=== PATIENT | female | born 1950 | race Caucasian/White ===

== ENCOUNTER → 2022-03-19 08:58 | Outpatient (BNVA) | payer BC, SELFPAY | PROVIDERS: PCP Internal Medicine; Visit Provider Nurse Practitioner Family | DX: Z13.89 Encounter for screening for other disorder (principal) ==

== ENCOUNTER → 2022-11-12 15:37 | Outpatient (BNVA) | payer BC, SELFPAY | PROVIDERS: PCP Internal Medicine; Visit Provider Nurse Practitioner Family | DX: Z13.89 Encounter for screening for other disorder (principal) ==

== ENCOUNTER 2023-08-15 08:14 | Outpatient (AMB) | payer BC, SELFPAY ==
[2023-08-15 08:15] VITALS: BP 124/78; PULSE 64; O2SAT 100; BMI 23.0
--- NOTE | 2023-08-15 08:15 | MHC.OFFVIS ---
Intake Vital Signs 08/15/23 08:15 Height 4 ft 10 in Weight 110 lb BMI 23.0 BP 124/78 Blood Pressure Location Rt brachial Position Sitting Pulse 64 Pulse Source Pulse Oximeter Pulse Oximetry (%) 100 Oxygen Delivery Method Room Air Intake Visit Reasons: 6mo Follow up appT- LVM Intake Note: Patient presents for 6 month follow up. Patient states very high anxiety Allergies No Known Allergies Allergy (Verified 08/15/23 08:18) HPI HPI Comments History of Present Illness Details 72-yr-old female presents for f/u visit. Pt denies any significant interval medical changes. Pt reports she is having increased anxiety r/t recently leaving her job of 26 yrs. 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 Prior to leaving her position, she had increased anxiety and stress, which caused her to lose her appetite and lose some weight. Her sleep is variable- some days better than others. Using CBD for sleep 2-3 x's per week. Her tremor is much worse , which she attributes to the stress/anxiety. Denies stiffness, gait changes, falls. [facility] Medical History (Updated 11/12/22 @ 16:54 by FUENTES Boucher) Anxiety Vertigo Osteoporosis Back pain GERD (gastroesophageal reflux disease) Depression Arthritis Surgical History Hx of cataract surgery Social History Alcohol intake: never Patient Tobacco Use Status: Never used Tobacco Review of Systems Const All systems reviewed & are unremarkable except as noted in HPI and below Physical Exam Vital Signs: Last Vital Signs Pulse 64 08/15/23 08:15 BP 124/78 08/15/23 08:15 Pulse Ox 100 08/15/23 08:15 Oxygen Delivery Method Room Air 08/15/23 08:15 BMI result Body Mass Index 23.0 Const General: cooperative and no acute distress Orientation/consciousness: patient oriented x3 HEENT Head: Yes normocephalic Resp Effort & Inspection: normal respiratory effort and able to speak in complete sentences Neuro Other: BUE postural tremor. General: patient oriented x3, gait normal and CN's II-XI intact bilaterally Cognition (Neuro): normal cognition Motor exam (neuro): 5/5 motor strength present throughout Psych Appearance: grossly normal Mental Status: mental status grossly normal Affect: normal affect Attitude: cooperative Thought process: Normal thought process present Assessment & Plan Assessment & Plan (1) Essential tremor: Comment: ARACELY scan normal. Code(s): G25.0 - Essential tremor (2) Insomnia: Code(s): G47.00 - Insomnia, unspecified Plan May use Lorazepam prn. May continue Gabapentin 600-700mg qhs. Discussed alt tx's for tremor such as PD/dopaminergic tx's including CD-LD and Ropinirole- pt would like to wait at this time. Pt to continue working on sleep hygiene. May take CBD gummies prn insomnia. f/u in 5 months or sooner prn. Coding Level of Care Code Est Pt Level 4 (11074) Diagnoses Essential tremor G25.0 Insomnia G47.00
== END 2023-08-15 09:08 | disposition home or self-care (01) ==
PROVIDERS: Visit Provider Nurse Practitioner Family
DX: G25.0 Essential tremor (principal); G47.00 Insomnia, unspecified
CPT/HCPCS: 99214

== ENCOUNTER → 2023-08-15 08:14 | Outpatient (BNVA) | payer BC, SELFPAY | PROVIDERS: Visit Provider Nurse Practitioner Family ==

== ENCOUNTER 2024-01-11 09:36 | Outpatient (AMB) | payer MEDICARE, BC, SELFPAY ==
--- NOTE | 2024-01-11 09:43 | A.OFFVIS_ITS ---
Intake Vital Signs 01/11/24 09:44 Height 4 ft 10 in Weight 112 lb BMI 23.4 BP 122/68 Blood Pressure Location Rt brachial Position Sitting Pulse 73 Pulse Source Pulse Oximeter Pulse Oximetry (%) 98 Oxygen Delivery Method Room Air Intake Visit Reasons: 5 mnts f/u appt-Conf Intake Note: Patient presents for 5 month follow up. tremors are getting worst Allergies No Known Allergies Allergy (Verified 01/11/24 09:52) Medication List - Last Reconciled 01/11/24 by FUENTES Boucher acetaminophen-codeine 300-30 mg tabs PO ascorbate calcium (vitamin C) 500 mg PO DAILY bupropion HCl 300 mg PO DAILY buspirone 30 mg PO BID estradiol 10 mcg vaginal 2XW gabapentin 600 mg PO DAILY lidocaine 5% 1 patch topical DAILY vitamin B complex 1 tab PO DAILY HPI HPI Comments History of Present Illness Details 73-yr-old female presents for f/u visit. Pt reports the following interval medical history changes: She injured her back in October while shoveling. She was significantly limited in her mobility. She is using a cane. She has done some PT and seeing [facility] pain management office- just recently had an epidural injection- has not had much benefit from this yet, however she is optimistic that it will have some effect. She has been feeling frustrated with all of this. 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 She is hoping to return to work once feeling better. She has noticed increased tremor w/ action and rest. Exacerbated by anxiety. The tremor is making it more difficult to write, use her cell phone, or her computer. Trying to do some deep breathing. [facility] Medical History (Updated 01/11/24 @ 19:21 by FUENTES Boucher) Anxiety Vertigo Osteoporosis Back pain GERD (gastroesophageal reflux disease) Depression Arthritis Surgical History Hx of cataract surgery Social History Alcohol intake: never Patient Tobacco Use Status: Never used Tobacco Review of Systems Const All systems reviewed & are unremarkable except as noted in HPI and below Physical Exam Vital Signs: Last Vital Signs Pulse 73 01/11/24 09:44 BP 122/68 01/11/24 09:44 Pulse Ox 98 01/11/24 09:44 Oxygen Delivery Method Room Air 01/11/24 09:44 BMI result Body Mass Index 23.4 Const General: cooperative and no acute distress Resp Effort & Inspection: normal respiratory effort and able to speak in complete sentences Neuro Other: Expression: Intact Voice: Intact Tremor: RUE and RLE rets tremor, BUE postural tremor, slightly more on right Tone: BUE R > L tone Dyskinesia: None FFM: Decreased Foot taps: Decreased- more so on left, patient states due to low back and left leg pain. Gait: Slow to stand, steady gait with cane. Psych: Pleasant affect, some anxiety Assessment & Plan Assessment & Plan (1) Essential tremor: Comment: ARACELY scan normal. 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 Code(s): G25.0 - Essential tremor (2) Insomnia: Code(s): G47.00 - Insomnia, unspecified Plan Trial carbidopa levodopa 25-100 mg, 1/2-1 tab b.i.d., take it at least 30 minutes before a meal or protein. In hopes this reduces tremor and rigidity. Reviewed common side effects: Orthostatic hypotension, nausea, dyskinesia, hallucinations. Information shared on essential tremor resources, such as computer aids, writing aids. Encouraged to increase fluids. May use Lorazepam prn. May continue Gabapentin 600-700mg qhs. Pt to continue working on sleep hygiene. May take CBD gummies prn insomnia. f/u in 6 months or sooner prn. Medications: New carbidopa-levodopa 25-100 mg take w/ a cracker 30 minutes before breakfast and dinner, 0.5 - 1 tabs PO BID 60 tabs 3RF 30 days Coding Level of Care Code Est Pt Level 4 (76249) Diagnoses Essential tremor G25.0 Insomnia G47.00
[2024-01-11 09:44] VITALS: BP 122/68; PULSE 73; O2SAT 98; BMI 23.4
== END 2024-01-11 10:45 | disposition home or self-care (01) ==
PROVIDERS: PCP Internal Medicine; Visit Provider Nurse Practitioner Family
DX: G25.0 Essential tremor (principal); G47.00 Insomnia, unspecified
CPT/HCPCS: 99214

== ENCOUNTER → 2024-01-11 09:36 | Outpatient (BNVA) | payer BC, SELFPAY | PROVIDERS: PCP Internal Medicine; Visit Provider Nurse Practitioner Family ==

== ENCOUNTER 2024-06-12 11:09 | Outpatient (AMB) | payer MEDICARE, BC, SELFPAY ==
--- NOTE | 2024-06-12 11:18 | MHC.OFFVIS ---
Vital Signs 06/12/24 11:19 Height 4 ft 10 in Weight 110 lb BMI 23.0 BP 110/72 Blood Pressure Location Rt brachial Position Sitting Pulse 71 Pulse Source Pulse Oximeter Pulse Oximetry (%) 98 Oxygen Delivery Method Room Air Intake Visit Reasons: Follow up-CONF Intake Note: Patient presents for follow up.Patient states tremors are getting worst back is hurting a lot and my memory is a concern. Allergies No Known Allergies Allergy (Verified 06/12/24 11:23) Medication List - Last Reconciled 06/12/24 by FUENTES Boucher acetaminophen-codeine 300-30 mg tabs PO ascorbate calcium (vitamin C) 500 mg PO DAILY bupropion HCl XL 300 mg PO DAILY buspirone 30 mg PO BID carbidopa-levodopa 25-100 mg 0.5 - 1 tabs PO BID 30 days estradiol 10 mcg vaginal 2XW gabapentin 600 mg PO DAILY lidocaine 5% 1 patch topical DAILY vitamin B complex 1 tab PO DAILY HPI Comments Details: Right-handed 73-yr-old female presents for f/u visit. Pt is accompanied by her , Sybil. Pt denies any significant interval medical history changes. Pt continues to work w/ [facility] pain management- she is being considered for device trial. Her step dtr committed suicide this Spring, and she is recovering from this. She has been taking CD-LD 1 tab qam. Forgetting to take the 2nd CD-LD dose regularly. She is not noticing much decrease in her tremors- if anything the tremors are increased. Tremor is mostly w/ action- writing, eating, using a computer- mostly with the typing but less so with the mouse, texting on her phone. Occasionally will see a RUE rest tremor. At times intentionally focusing and telling her hand not to tremor helps briefly. The tremors are most bothersome when anxious or upset. She is curious about Medicare coverage of Brian-Trio. She is noticing more cognitive issues. Relying on her her calender in her phone more often. May wake up and need to confirm what day it is. feels her memory is worse in the am, but feels once she is settled, her cognition is ok. She is noticing that she is more prone to misplacing her keys or forgetting to bring everything with her- say her cane. Having some more nights were she is not falling asleep as easily. Some nights she sleeps 12 hrs, which she feels she needs as she did sleep. She denies daytime tiredness. Notes her mood is better since we last saw her in December, as at that point she was dealing w/ some financial issues. 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 [facility] Medical History Anxiety Vertigo Osteoporosis Back pain GERD (gastroesophageal reflux disease) Depression Arthritis Surgical History Hx of cataract surgery Social History Alcohol intake: never Patient Tobacco Use Status: Never used Tobacco Review of Systems Const All systems reviewed & are unremarkable except as noted in HPI and below Physical Exam Vital Signs: Last Vital Signs Pulse 71 06/12/24 11:19 BP 110/72 06/12/24 11:19 Pulse Ox 98 06/12/24 11:19 Oxygen Delivery Method Room Air 06/12/24 11:19 BMI result Body Mass Index 23.0 Const General: cooperative and no acute distress Resp Effort & Inspection: normal respiratory effort and able to speak in complete sentences Neuro Other: General: A&O x's 3 Expression: Intact Voice: Intact Tremor: RUE and RLE rest tremor, BUE postural and kinetic tremor, slightly more on right Tone: BUE R > L tone Dyskinesia: None FFM: Decreased Foot taps: Decreased- more so on left, Gait: Slow to stand, steady gait with cane. Psych: Pleasant affect Assessment & Plan Assessment & Plan (1) Essential tremor: Comment: ARACELY scan normal. 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 Code(s): G25.0 - Essential tremor Category: Medical (2) Cognitive changes: Code(s): R41.89 - Other symptoms and signs involving cognitive functions and awareness Category: Medical Plan Regarding Brian-Trio, we will request updated Medicare clinical criteria for this device. Pt advised to discuss using brian-trio w/ potential pain device, as these may be contraindicated. Trial slowly increasing carbidopa-levodopa 25-100 mg, from 1 tab 1 tab qd-bid to 1 tab tid. Ideally, take it at least 30 minutes before a meal or protein. In hopes this reduces tremor and rigidity. Reviewed common side effects: Orthostatic hypotension, nausea, dyskinesia, hallucinations. Information shared on essential tremor resources, such as computer aids, writing aids. Increased fluids. May use Lorazepam prn. May continue Gabapentin 600-700mg qhs. Pt to continue working on sleep hygiene. May take CBD gummies prn insomnia- sparingly. Will request baseline neuro-psych evaluation. Previous ET trials- Propranolol 40mg bid- not tolerated. Primidone 25mg- not tolerated. f/u in 6 months or sooner prn. Orders: Referrals Neuropsychiatry Referral R41.89 - Other symptoms and signs involving cognitive functions and awareness Medications: Changed From carbidopa-levodopa 25-100 mg take w/ a cracker 30 minutes before breakfast and dinner, 0.5 - 1 tabs PO BID 30 days 60 tabs 6RF To carbidopa-levodopa 25-100 mg take w/ a cracker 30 minutes before breakfast and dinner, 0.5 - 1 tabs PO TID 90 tabs 6RF 30 days Coding Level of Care Code Est Pt Level 4 (04913) Diagnoses Essential tremor G25.0 Cognitive changes R41.89
[2024-06-12 11:19] VITALS: BP 110/72; PULSE 71; O2SAT 98; BMI 23.0
== END 2024-06-12 12:27 | disposition home or self-care (01) ==
PROVIDERS: PCP Internal Medicine; Visit Provider Nurse Practitioner Family
DX: G25.0 Essential tremor (principal); R41.89 Other symptoms and signs involving cognitive functions and awareness
CPT/HCPCS: 99214

== ENCOUNTER → 2024-06-12 11:09 | Outpatient (BNVA) | payer BC, MEDICARE, SELFPAY | PROVIDERS: PCP Internal Medicine; Visit Provider Nurse Practitioner Family ==

== ENCOUNTER 2024-12-20 08:44 | Outpatient (AMB) | payer BC, MEDICARE, SELFPAY ==
[2024-12-20 08:47] VITALS: BP 110/72; PULSE 76; O2SAT 99; BMI 23.2
--- NOTE | 2024-12-20 08:47 | A.OFFVIS_ITS ---
Vital Signs 12/20/24 08:47 Height 4 ft 10 in Weight 111 lb BMI 23.2 BP 110/72 Blood Pressure Location Rt brachial Position Sitting Pulse 76 Pulse Source Pulse Oximeter Pulse Oximetry (%) 99 Oxygen Delivery Method Room Air Intake Visit Reasons: Follow Up Health Data Administrator Required: No Accompanied by: Self / Same As Patient Allergies No Known Allergies Allergy (Verified 12/20/24 08:50) Medication List - Last Reconciled 12/20/24 by FUENTES Boucher acetaminophen-codeine 300-30 mg tabs PO ascorbate calcium (vitamin C) 500 mg PO DAILY bupropion HCl XL 300 mg PO DAILY buspirone 30 mg PO BID carbidopa-levodopa 25-100 mg 1.5 tab in am and 1 tab bid orally 3 times a day; take w/ a cracker 30 minutes before breakfast and dinner, 30 days estradiol 10 mcg vaginal 2XW gabapentin 600 mg PO DAILY lidocaine 5% 1 patch topical DAILY vitamin B complex 1 tab PO DAILY HPI Comments Details: Right-handed 73-yr-old female presents for f/u visit of essential tremor. There is a long-standing history of essential tremor, impacting daily activities substantially. The patient reports progressive difficulty in fine motor skills, markedly affecting handwriting, technology use, and eating. She has tried gabapentin and propranolol with inadequate results and most recently tried carbidopa levodopa with limited improvement. She reports concerns for cognitive changes, given a family history of dementia. Labs reveal vitamin D deficiency; supplementation is recommended. Physical therapy is aiding back pain improvement- continues to use a cane when needed. Exercise The patient engages in physical therapy designed to reduce back pain and increase core strength. Although limited due to mobility and balance challenges, she employs an electric cart for longer excursions in the grocery store, finds walking tiring, and is encouraged to gradually increase physical activities for cognitive benefits. Goals are to improve endurance to maximize independence in daily tasks. Review of Systems - Neurological: Reports tremor, cognitive changes with memory concerns. - Musculoskeletal: Reports back pain improving with physical therapy; intermittent balance issues. - Sensory: Reports hearing loss managed with hearing aids which she is still adjusting to. - Hematologic: Previously advised to monitor homocysteine and methylmalonic acids. Diagnostic results - Labs: Vitamin D level lower than optimal range; vitamin B12 within normal limits; folate deemed sufficient; homocysteine and methylmalonic acid levels normal. 06/12/2024 HPI: Pt is accompanied by her , Sybil. Pt denies any significant interval medical history changes. Pt continues to work w/ [facility] pain management- she is being considered for device trial. Her step dtr committed suicide this Spring, and she is recovering from this. She has been taking CD-LD 1 tab qam. Forgetting to take the 2nd CD-LD dose regularly. She is not noticing much decrease in her tremors- if anything the tremors are increased. Tremor is mostly w/ action- writing, eating, using a computer- mostly with the typing but less so with the mouse, texting on her phone. Occasionally will see a RUE rest tremor. At times intentionally focusing and telling her hand not to tremor helps briefly. The tremors are most bothersome when anxious or upset. She is curious about Medicare coverage of Dylon-Trio. She is noticing more cognitive issues. Relying on her her calender in her phone more often. May wake up and need to confirm what day it is. feels her memory is worse in the am, but feels once she is settled, her cognition is ok. She is noticing that she is more prone to misplacing her keys or forgetting to bring everything with her- say her cane. Having some more nights were she is not falling asleep as easily. Some nights she sleeps 12 hrs, which she feels she needs as she did sleep. She denies daytime tiredness. Notes her mood is better since we last saw her in December, as at that point she was dealing w/ some financial issues. 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 [facility] Medical History Anxiety Vertigo Osteoporosis Back pain GERD (gastroesophageal reflux disease) Depression Arthritis Surgical History Hx of cataract surgery Social History Alcohol intake: never Patient Tobacco Use Status: Never used Tobacco Physical Exam Vital Signs: Last Vital Signs Pulse 76 12/20/24 08:47 BP 110/72 12/20/24 08:47 Pulse Ox 99 03/06/25 08:47 Oxygen Delivery Method Room Air 12/20/24 08:47 BMI result Body Mass Index 23.2 Const General: cooperative and no acute distress Resp Effort & Inspection: normal respiratory effort and able to speak in complete sentences Neuro Other: General: A&O x's 3 Expression: Intact Voice: Intact Tremor: RUE and RLE rest tremor, BUE postural and kinetic tremor, more so on right. Writing sample: Writing almost illegible. Tone: BUE R > L tone Dyskinesia: None FFM: Decreased Foot taps: Decreased- more so on left. Gait: Slow to stand, steady gait Psych: Pleasant affect Assessment & Plan Assessment & Plan (1) Essential tremor: Comment: ARACELY scan normal. 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 Code(s): G25.0 - Essential tremor Category: Medical (2) MCI (mild cognitive impairment): Code(s): G31.84 - Mild cognitive impairment of uncertain or unknown etiology Category: Medical (3) Mild obstructive sleep apnea: Comment: has never tried CPAP. Code(s): G47.33 - Obstructive sleep apnea (adult) (pediatric) Category: Medical Plan We discussed the patient?s current essential tremor and its management strategies, highlighting prior treatments and the potential for increasing Carvidopa levodopa dosing. We talked about the viability of Calatrio, which has strong evidence to better improve tremor control, however we will need to determine insurance coverage. Also discussed the role of deep brain stimulation versus focused ultrasound as future considerations. Risks of surgical interventions, including potential cognitive impact, were examined against the backdrop of the patient's mild cognitive impairment and family history of dementia. Lifestyle modifications geared at improving physical activity, which could promote neurological and cognitive benefits. Recommendations for improving technological ease with accessories, functional strategies in daily tasks, and assistive technologies were also reviewed. Plan Essential tremor - Will initiate right handed Dylon-Trio order. * Patient has no contraindications to Dylon trio, an external upper limb tremor stimulator therapy. * Dylon trio, an external upper limb tremor stimulator, is being prescribed to treat patient's RUE, which is patient's dominant upper limb. * Dylon trio, an external upper limb tremor stimulator, is clinically indicated for this patient, as the severity of patient's ET symptoms significantly impairs the patient's ability to perform dominant hand, [id number] activities of daily living (ADLs) as evidenced by the results of today's Adolph & Ni Tremor ADL Scale (BF-ADL), which show a score of 3 or above for cutting food, using a spoon to drink soup, holding a cup of tea, pouring milk from a bottle, washing and drying dishes, bathing, toileting, time she voices, buttons and zippers, writing, placing a letter in an envelope, holding/reading newspaper, dialing the telephone, managing a remote control, picking up change, inserting and electric plug to a socket, unlocking the front door with a thompson, and carrying a full shopping bag. * Patient is not taking any tremor exacerbating medications. * Patient has not tolerated and has not had significant positive effect from propranolol and primidone. Gabapentin up to 700 mg per day has not had beneficial effect on tremor. * Dylon trio, an external upper limb tremor stimulator therapy is being prescribed as an alternative to invasive and/or permanent surgical treatment options. - In the meantime * Resume Carbidopa-levodopa 25-100mg- slowly increase dose up to 1.5 tabs 3 x's per day - notify me of any side effects. * Continue Gabapentin 600-700mg qhs. * Information shared on essential tremor resources, such as computer aids, writing aids. * Patient advised to undergo Brain MRI w/o contrast- to assess secondary etiologies of cognitive and tremor s/s. * Previous ET trials- Propranolol 40mg bid- not tolerated. Primidone 25mg- not tolerated. Cognitive symptoms - Reviewed neuropsych consult- MCI - Engage in daily physical activity for cognitive benefits. - Use Vitamin D2 as prescribed once weekly. - Adjust hearing aids regularly, attend follow-up audiological evaluations, and report any issues. - Schedule future lab work to track vitamin progress and attend upcoming appointments as planned. For sleep - Concur with consult to re-assess degree of sleep apnea- pt states she has an appt already. - Pt to continue working on sleep hygiene. - May take CBD gummies prn insomnia- sparingly. - Follow up in 6 months, and report new symptoms or concerns promptly. Orders: Orders MR head/brain wo con 12/20/24 R41.89 - Other symptoms and signs involving cognitive functions and awareness, G25.0 - Essential tremor Medications: Changed From carbidopa-levodopa 25-100 mg 1.5 tab in am and 1 tab bid orally 3 times a day; take w/ a cracker 30 minutes before breakfast and dinner, 30 days 105 tabs 6RF To carbidopa-levodopa 25-100 mg 1.5 tabs PO TID 135 tabs 6RF 30 days Coding Level of Care Code Est Pt Level 4 (78660) Complex EM visit Add On G2211 Diagnoses Essential tremor G25.0 MCI (mild cognitive impairment) G31.84 Mild obstructive sleep apnea G47.33 BFADL Questionnaire: Cut food with a knife and fork: 3 - Able to do activity with a lot of effort, Use a spoon to drink soup: 4 - Cannot do the activity by yourself, Hold a cup of tea: 3 - Able to do activity with a lot of effort (With 2 hands), Pour milk from a bottle or carton: 4 - Cannot do the activity by yourself, Wash and dry dishes: 3 - Able to do activity with a lot of effort, [place] your teeth: 2 - Able to do activity with a little effort, Use a handkerchief to blow your nose: 2 - Able to do activity with a little effort, Use a bath: 3 - Able to do activity with a lot of effort, Use the lavoratory: 3 - Able to do activity with a lot of effort, Wash your face and hands: 2 - Able to do activity with a little effort, Tie your shoelaces: 3 - Able to do activity with a lot of effort, Do up buttons: 4 - Cannot do the activity by yourself, Do up a zip: 3 - Able to do activity with a lot of effort, Write a letter: 4 - Cannot do the activity by yourself, Put a letter in an envelope: 3 - Able to do activity with a lot of effort, Hold and read a newspaper: 3 - Able to do activity with a lot of effort, Dial a telephone: 3 - Able to do activity with a lot of effort, Make yourself understood on a telephone: 2 - Able to do activity with a little effort, Watch television: 3 - Able to do activity with a lot of effort (To use the TV controls), supervisor vine fruit farming your change in a shop: 3 - Able to do activity with a lot of effort, Inset an electrical plug into a socket: 3 - Able to do activity with a lot of effort, Unlock your front door with a thompson: 3 - Able to do activity with a lot of effort, Walk up and down stairs: 3 - Able to do activity with a lot of effort, Get up out of an armchair: 3 - Able to do activity with a lot of effort and Carry a full shopping ba - Cannot do the activity by yourself
--- OUTSIDE RECORDS SUMMARY | 2024-12-20 09:23 | XMS_ITS | Continuity of Care Document ---
Author Organization [facility] Address [address] [place] [address]- Care Team Providers Care Retail Sales Associate Bilingual Name Role Phone Monika ISSA, Marge Primary Care Physician Encounter [facility] [place] Date(s): 10/31/24 - 11/30/24 [facility] [address] [place] [address]- Encounter Type: Triage Allergies, Adverse Reactions, Alerts No Known Allergies Immunizations Given and Recorded Vaccine Date Status Refusal Reason SARS-CoV-2(COVID-19)mRNA-LNP vac([id number]) 09/05/24 Recorded SARS-CoV-2(COVID-19)mRNA-LNP vac([id number]) 10/02/23 Recorded influenza virus vaccine, inactivated 08/25/24 Darian rded influenza virus vaccine, inactivated 10/02/23 Darian rded influenza virus vaccine, inactivated 1 08/16/22 Gi gloria influenza virus vaccine, inactivated 07/04/21 Darian rded influenza virus vaccine, inactivated 2 08/13/18 Gi gloria influenza virus vaccine, inactivated 3 08/04/17 Gi gloria influenza virus vaccine, inactivated 07/30/16 Darian rded influenza virus vaccine, inactivated 4 07/17/14 Gi gloria influenza virus vaccine, inactivated 06/19/11 Darian rded pneumococcal 20-valent conjugate vaccine 10/29/23 Recorded RSV vaccine preF3, recombinant 08/13/23 Recorded [id number] 12y+ bivalent booster vax 08/22/22 Recorded SARS-CoV-2 (COVID-19) mRNA-1273 vaccine 01/15/22 R ecorded SARS-CoV-2 (COVID-19) mRNA-1273 vaccine 08/12/21 R ecorded SARS-CoV-2 (COVID-19) mRNA-1273 vaccine 12/05/20 R ecorded SARS-CoV-2 (COVID-19) mRNA-1273 vaccine 11/07/20 R ecorded zoster vaccine, inactivated 09/27/21 Recorded zoster vaccine, inactivated 07/18/21 Recorded tetanus/diphtheria/pertussis, acel(Tdap) 09/27/21 Recorded tetanus/diphtheria/pertussis, acel(Tdap) 01/23/16 Recorded tetanus/diphtheria/pertussis, acel(Tdap) 01/22/15 Given Influenza Virus Vaccine (oldterm) 5 07/10/20 Recor ded Influenza Virus Vaccine (oldterm) 08/12/19 Recorde d pneumococcal 13-valent vaccine 08/19/18 Recorded pneumococcal 13-valent vaccine 01/22/15 Given Tet/diphth/pertussis, acel (oldterm) 6 01/23/16 Gi gloria pneumococcal 23-valent vaccine 7 05/21/14 Given 1Result Comment: [id number] [facility] 4Admin Note: per [facility] at [facility] 7Admin Note: per pt Medications buPROPion 300 mg/24 hours (XL) oral tablet, extended release 1 tablet, By Mouth, Daily, # 90 tablet, 3 Refills, 06/22/23 10:25:00 AM EDT, [facility], 145.6, cm, 02/23/23 7:42:00 EDT, Height Start Date: 06/22/23 Status: Ordered Quantity: 90.0 Unit: tablet Repeat number: 4 busPIRone 15 mg oral tablet 2 tablet, By Mouth, 2 times a day, # 360 tablet, 1 Refills, Maintenance, 10/15/24 12:43:00 PM EST, [id number], 148, cm, 09/03/24 11:08:00 EST, Height, 50, kg, 09/03/24 11:08:00 EST, Dry Weight Start Date: 10/15/24 Status: Ordered Quantity: 360.0 Unit: tablet Repeat number: 1 D3 with Calcium By Mouth, Daily, 0 Refills, Maintenance, 02/23/21 8:28:00 AM EDT, Partial fill upon patient request if the prescription is for a schedule II opioid drug. Start Date: 02/23/21 Status: Ordered Repeat number: 1 ergocalciferol 08800 iu oral capsule 1, capsule, By Mouth, Every week, # 12 capsule, Refills 0, Maintenance, 10/15/24 12:43:00 PM EST, Route to Pharmacy Electronically, [id number], 148, cm, 09/03/24 11:08:00 EST, Height, 50, kg, 09/03/24 11:08:00 EST, Dry Weight Start Date: 10/15/24 Status: Ordered Quantity: 12.0 Unit: capsule Repeat number: 1 gabapentin 100 mg oral capsule 200 mg, 2, capsule, By Mouth, Daily at bedtime, # 180 capsule, Refills 1, Tot. Refills 1, Maintenance, 09/05/24 1:06:00 PM EST, Route to Pharmacy Electronically, [facility]/pharmacy #[id number], Partial fill uponpatient request if the prescription is for a schedule II opioid drug., 148, cm, 09/03/24 11:08:00 EST, Height, 50, kg, 09/03/24 11:08:00 EST, Dry Weight Start Date: 09/05/24 Status: Ordered Quantity: 180.0 Unit: capsule Repeat number: 2 gabapentin 600 mg oral tablet 1 tablet = 600 mg, By Mouth, Daily, # 90 tablet, 1 Refills, Maintenance, 09/05/24 1:06:00 PM EST, Tablet, [facility]/pharmacy #[id number], Partial fill upon patient request if the prescription is for a schedule II opioid drug., 148, cm, 09/03/24 11:08:00 EST, Height, 50, kg, 09/03/24 11:08:00 EST, Dry Weight Start Date: 09/05/24 Status: Ordered Quantity: 90.0 Unit: tablet Repeat number: 2 Loratadine By Mouth, Daily, Refills 0, Maintenance, 07/11/23 11:58:00 AM EDT, Partial fill upon patient requestif the prescription is for a schedule II opioid drug. Start Date: 07/11/23 Status: Ordered Repeat number: 1 Lutein 6 mg oral capsule 1 capsule = 6 mg, By Mouth, Daily, # 30 capsule, 0 Refills, Maintenance, 01/22/15 8:41:21 AM EDT, Capsule Start Date: 01/22/15 Status: Ordered Quantity: 30.0 Unit: capsule Repeat number: 1 Vagifem 10 mcg vaginal tablet See Instructions, 1 tablet Vaginally at bedtime TWICE WEEKLY, # 24 tablet, 3 Refills, Maintenance, 07/30/22 10:14:00 AM EDT, [facility], 146, cm, 03/10/22 8:16:00 EDT, Height Start Date: 07/30/22 Status: Ordered Quantity: 24.0 Unit: tablet Repeat number: 4 Indication: Postmenopausal atrophic vaginitis Vit B Complex Tablet 0 Refills, Maintenance, 07/11/23 11:58:00 AM EDT, Partial fill upon patient request if the prescription is for a schedule II opioid drug. 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 Osteopenia Confirmed Active Sciatica Confirmed Active Seasonal allergies Confirmed Active Foraminal stenosis of lumbar region Confirmed Active Social History Social History Type Response Smoking Status Former smoker; Other : start 1965 x9yr; entered on: 05/20/17 Sex Sex Representation Female (finding) Patient Care team information Care Team Personnel Name: Marge Frank MD Position: [facility] Physician - Primary Care Member Role: PCP Address: [address] [place] [address] Telecom: Care Team Related Persons Name: NESTOR BLEVINS Insurance Providers Guarantor name: YOLANDA PRADHAN Health Plan Information #: 1 Payer: MEDICARE PART B OUTPT Member Number: NA Policy Number: NA Group Number: NA Health Plan Information #: 2 Payer: MEDEX Member Number: NA Policy Number: NA Group Number: NA
--- OUTSIDE RECORDS SUMMARY | 2024-12-20 09:24 | XMS_ITS | Continuity of Care Document ---
Author Organization [facility] Address [address] [place] [address]- Care Team Providers Care Emergency Doctor Name Role Phone Monika ISSA, Marge Primary Care Physician Encounter [facility] [place] Date(s): 10/31/24 - 11/30/24 [facility] [address] [place] [phone]- Encounter Type: Triage Allergies, Adverse Reactions, Alerts No Known Allergies Immunizations Given and Recorded Vaccine Date Status Refusal Reason SARS-CoV-2(COVID-19)mRNA-LNP vac([id number]) 09/05/24 Recorded SARS-CoV-2(COVID-19)mRNA-LNP vac([id number]) 10/02/23 Recorded influenza virus vaccine, inactivated 08/25/24 [...] Recorded RSV vaccine preF3, recombinant 08/13/23 Recorded [id number] 12y+ bivalent booster vax 08/22/22 Recorded SARS-CoV-2 [...] 23-valent vaccine 7 05/21/14 Given 1Result Comment: [id number] 2[facility] 4Admin Note: per pt at [facility] 7Admin Note: per pt Medications buPROPion 300 mg/24 hours (XL) oral tablet, extended release 1 tablet, By Mouth, Daily, # 90 tablet, 3 Refills, 06/22/23 10:25:00 AM EDT, [facility], 145.6, cm, 02/23/23 7:42:00 EDT, Height Start Date: 06/22/23 Status: Ordered Quantity: 90.0 Unit: tablet Repeat number: 4 busPIRone 15 mg oral tablet 2 tablet, By Mouth, 2 times a day, # 360 tablet, 1 Refills, Maintenance, 10/15/24 12:43:00 PM EST, [facility] [id number], 148, cm, 09/03/24 11:08:00 EST, Height, 50, kg, 09/03/24 11:08:00 EST, Dry Weight Start Date: 10/15/24 Status: Ordered Quantity: 360.0 Unit: tablet Repeat number: 1 D3 with Calcium By Mouth, Daily, 0 Refills, Maintenance, 02/23/21 8:28:00 AM EDT, Partial fill upon patient request if the prescription is for a schedule II opioid drug. Start Date: 02/23/21 Status: Ordered Repeat number: 1 ergocalciferol 31322 iu oral capsule 1, capsule, By Mouth, Every week, # 12 capsule, Refills 0, Maintenance, 10/15/24 12:43:00 PM EST, Route to Pharmacy Electronically, [facility] [id number], 148, cm, 09/03/24 11:08:00 EST, Height, 50, kg, 09/03/24 11:08:00 EST, Dry Weight Start Date: 10/15/24 Status: Ordered Quantity: 12.0 Unit: capsule Repeat number: 1 gabapentin 100 mg oral capsule 200 mg, 2, capsule, By Mouth, Daily at bedtime, # 180 capsule, Refills 1, Tot. Refills 1, Maintenance, 09/05/24 1:06:00 PM EST, Route to Pharmacy Electronically, [facility]/pharmacy #[id number], Partial fill uponpatient request if the [...] Refills, Maintenance, 09/05/24 1:06:00 PM EST, Tablet, [facility]/pharmacy #[id number], Partial fill upon patient request if [...] Team Personnel Name: Marge Frank MD Position: [facility] Physician - Primary Care Member Role: PCP [facility] [address] [place] [address]- Telecom: Care Team Related Persons Name: NESTOR BLEVINS Insurance Providers Guarantor name: YOLANDA PRADHAN Health Plan Information #: 1 Payer: MEDICARE PART B OUTPT Member Number: NA Policy Number: NA Group Number: NA Health Plan Information #: 2 Payer: MEDEX Member Number: NA Policy Number: NA Group Number: NA
--- OUTSIDE RECORDS SUMMARY | 2024-12-20 09:24 | XMS_ITS | Continuity of Care Document ---
Author Organization [facility] Address [address] [place] [address]- Care Team Providers Care Delivery Stock Clerk Name Role Phone Monika ISSA, Marge Primary Care Physician Encounter [facility] [place] Date(s): 10/29/24 - 11/28/24 [facility] [address] [place] [phone]- Encounter Type: Triage Allergies, Adverse Reactions, Alerts No Known Allergies Immunizations Given and Recorded Vaccine Date Status Refusal Reason SARS-CoV-2(COVID-19)mRNA-LNP vac([id number]) 09/05/24 Recorded SARS-CoV-2(COVID-19)mRNA-LNP vac([id number]) 10/02/23 Recorded influenza virus vaccine, inactivated 08/25/24 [...] Recorded RSV vaccine preF3, recombinant 08/13/23 Recorded [id number] 12y+ bivalent booster vax 08/22/22 Recorded SARS-CoV-2 [...] 23-valent vaccine 7 05/21/14 Given 1Result Comment: [id number] 2[facility] 4Admin Note: per pt at [facility] 7Admin Note: per pt Medications buPROPion 300 mg/24 hours (XL) oral tablet, extended release 1 tablet, By Mouth, Daily, # 90 tablet, 3 Refills, 06/22/23 10:25:00 AM EDT, [facility], 145.6, cm, 02/23/23 7:42:00 EDT, Height Start Date: 06/22/23 Status: Ordered Quantity: 90.0 Unit: tablet Repeat number: 4 busPIRone 15 mg oral tablet 2 tablet, By Mouth, 2 times a day, # 360 tablet, 1 Refills, Maintenance, 10/15/24 12:43:00 PM EST, [facility] [id number], 148, cm, 09/03/24 11:08:00 EST, Height, 50, kg, 09/03/24 11:08:00 EST, Dry Weight Start Date: 10/15/24 Status: Ordered Quantity: 360.0 Unit: tablet Repeat number: 1 D3 with Calcium By Mouth, Daily, 0 Refills, Maintenance, 02/23/21 8:28:00 AM EDT, Partial fill upon patient request if the prescription is for a schedule II opioid drug. Start Date: 02/23/21 Status: Ordered Repeat number: 1 ergocalciferol 09606 iu oral capsule 1, capsule, By Mouth, Every week, # 12 capsule, Refills 0, Maintenance, 10/15/24 12:43:00 PM EST, Route to Pharmacy Electronically, [facility] [id number], 148, cm, 09/03/24 11:08:00 EST, Height, 50, kg, 09/03/24 11:08:00 EST, Dry Weight Start Date: 10/15/24 Status: Ordered Quantity: 12.0 Unit: capsule Repeat number: 1 gabapentin 100 mg oral capsule 200 mg, 2, capsule, By Mouth, Daily at bedtime, # 180 capsule, Refills 1, Tot. Refills 1, Maintenance, 09/05/24 1:06:00 PM EST, Route to Pharmacy Electronically, [facility]/pharmacy #[id number], Partial fill uponpatient request if the [...] Refills, Maintenance, 09/05/24 1:06:00 PM EST, Tablet, [facility]/pharmacy #[id number], Partial fill upon patient request if [...] Daily, # 30 capsule, 0 Refills, Maintenance, 4/8/15 8:41:21 AM EDT, Capsule Start Date: 01/22/15 [...] Team Personnel Name: Marge Frank MD Position: [facility] Physician - Primary Care Member Role: PCP Address: [address] [place] [address]- Telecom: Care Team Related Persons Name: NESTOR BLEVINS Insurance Providers Guarantor name: YOLANDA PRADHAN Health Plan Information #: 1 Payer: MEDICARE PART B OUTPT Member Number: NA Policy Number: NA Group Number: NA Health Plan Information #: 2 Payer: MEDEX Member Number: NA Policy Number: NA Group Number: NA
--- OUTSIDE RECORDS SUMMARY | 2024-12-20 09:24 | XMS_ITS | Continuity of Care Document ---
Author Organization [facility] Address [address] [place] [address]- Care Team Providers Care Sleep Tech Name Role Phone Monika ISSA, Marge Primary Care Physician [place] [facility] [place] 12/07/24 [facility] [address] [place] [phone]- Attending Physician: Abhijeet Martinez Admitting Physician: Abhijeet Martinez Referring Physician: AdmtrAbhijeet Encounter Type: Triage Allergies, Adverse Reactions, Alerts No Known Allergies Immunizations Given and Recorded Vaccine Date Status Refusal Reason SARS-CoV-2(COVID-19)mRNA-LNP vac([id number]) 09/05/24 Recorded SARS-CoV-2(COVID-19)mRNA-LNP vac([id number]) 10/02/23 Recorded influenza virus vaccine, inactivated 08/25/24 [...] Recorded RSV vaccine preF3, recombinant 08/13/23 Recorded [id number] 12y+ bivalent booster vax 08/22/22 Recorded SARS-CoV-2 [...] 23-valent vaccine 7 05/21/14 Given 1Result Comment: [id number] 2[facility] 3[facility] 4Admin Note: per pt at [facility] 7Admin Note: per pt Medications buPROPion 300 mg/24 hours (XL) oral tablet, extended release 1 tablet, By Mouth, Daily, # 90 tablet, 3 Refills, 06/22/23 10:25:00 AM EDT, [facility], 145.6, cm, 02/23/23 7:42:00 EDT, Height Start Date: 06/22/23 Status: Ordered Quantity: 90.0 Unit: tablet Repeat number: 4 busPIRone 15 mg oral tablet 2 tablet, By Mouth, 2 times a day, # 360 tablet, 1 Refills, Maintenance, 10/15/24 12:43:00 PM EST, [facility] [address], 148, cm, 09/03/24 11:08:00 EST, Height, 50, kg, 09/03/24 11:08:00 EST, Dry Weight Start Date: 10/15/24 Status: Ordered Quantity: 360.0 Unit: tablet Repeat number: 1 D3 with Calcium By Mouth, Daily, 0 Refills, Maintenance, 02/23/21 8:28:00 AM EDT, Partial fill upon patient request if the prescription is for a schedule II opioid drug. Start Date: 02/23/21 Status: Ordered Repeat number: 1 ergocalciferol 35517 iu oral capsule 1, capsule, By Mouth, Every week, # 12 capsule, Refills 0, Maintenance, 10/15/24 12:43:00 PM EST, Route to Pharmacy Electronically, [facility] [address], 148, cm, 09/03/24 11:08:00 EST, Height, 50, kg, 09/03/24 11:08:00 EST, Dry Weight Start Date: 10/15/24 Status: Ordered Quantity: 12.0 Unit: capsule Repeat number: 1 gabapentin 100 mg oral capsule 200 mg, 2, capsule, By Mouth, Daily at bedtime, # 180 capsule, Refills 1, Tot. Refills 1, Maintenance, 09/05/24 1:06:00 PM EST, Route to Pharmacy Electronically, [facility]/pharmacy #[id number], Partial fill uponpatient request if the prescription is for a schedule II opioid drug., 148, cm, 09/03/24 11:08:00 EST, Height, 50, kg, 09/03/24 11:08:00 EST, Dry Weight Start Date: 09/05/24 Status: Ordered Quantity: 180.0 Unit: capsule Repeat number: 2 gabapentin 600 mg oral tablet 1 tablet = 600 mg, By Mouth, Daily, TO BE FILLED 12/08/24, # 90 tablet, 1 Refills, Maintenance, 12/05/24 5:12:00 PM EST, Tablet, [facility]/pharmacy #[id number], Partial fill upon patient request if the prescription is for a schedule II opioid drug., 148, cm, 11/21/24 12:13:00 EST, Height, 50, kg, 09/03/24 11:08:00 EST, Dry Weight Start Date: 12/05/24 Status: Ordered Quantity: 90.0 Unit: tablet Repeat [...] Team Personnel Name: Marge Frank MD Position: [facility] Physician - Primary Care Member Role: PCP Address: [address] [place] [address] [address] [place] [address]- Telecom: Care Team Related Persons Name: NESTOR BLEVINS Insurance Providers Guarantor name: YOLANDAALOK DIASMAN Health Plan Information #: 1 Payer: MEDICARE PART B OUTPT Member Number: NA Policy Number: NA Group Number: NA Health Plan Information #: 2 Payer: MEDEX Member Number: NA Policy Number: NA Group Number: NA
--- OUTSIDE RECORDS SUMMARY | 2024-12-20 09:24 | XMS_ITS | Continuity of Care Document ---
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) - 11/21/24 Mild cognitive impairment(Discharge Diagnosis) - 11/21/24 Attending Physician: Marge Frank MD Encounter Type: Office Visit Allergies, Adverse Reactions, Alerts No Known Allergies Immunizations Given and Recorded Vaccine Date Status Refusal Reason SARS-CoV-2(COVID-19)mRNA-LNP vac([id number]) 09/05/24 Recorded SARS-CoV-2(COVID-19)mRNA-LNP vac([id number]) 10/02/23 Recorded influenza virus vaccine, inactivated 08/25/24 [...] Recorded RSV vaccine preF3, recombinant 08/13/23 Recorded [id number] 12y+ bivalent booster vax 08/22/22 Recorded SARS-CoV-2 [...] 23-valent vaccine 7 05/21/14 Given 1Result Comment: [id number] 2[facility] 3[facility] 4Admin Note: per [facility] at [facility] 7Admin Note: per pt Medications buPROPion 300 mg/24 hours (XL) oral tablet, extended release 1 tablet, By Mouth, Daily, # 90 tablet, 3 Refills, 06/22/23 10:25:00 AM EDT, [facility], 145.6, cm, 02/23/23 7:42:00 EDT, Height Start Date: 06/22/23 Status: Ordered Quantity: 90.0 Unit: tablet Repeat number: 4 busPIRone 15 mg oral tablet 2 tablet, By Mouth, 2 times a day, # 360 tablet, 1 Refills, Maintenance, 10/15/24 12:43:00 PM EST, [id number], 148, cm, 09/03/24 11:08:00 EST, Height, 50, kg, 09/03/24 11:08:00 EST, Dry Weight Start Date: 10/15/24 Status: Ordered Quantity: 360.0 Unit: tablet Repeat number: 1 D3 with Calcium By Mouth, Daily, 0 Refills, Maintenance, 02/23/21 8:28:00 AM EDT, Partial fill upon patient request if the prescription is for a schedule II opioid drug. Start Date: 02/23/21 Status: Ordered Repeat number: 1 ergocalciferol 68326 iu oral capsule 1, capsule, By Mouth, Every week, # 12 capsule, Refills 0, Maintenance, 10/15/24 12:43:00 PM EST, Route to Pharmacy Electronically, [id number], 148, cm, 09/03/24 11:08:00 EST, Height, 50, kg, 09/03/24 11:08:00 EST, Dry Weight Start Date: 10/15/24 Status: Ordered Quantity: 12.0 Unit: capsule Repeat number: 1 gabapentin 100 mg oral capsule 200 mg, 2, capsule, By Mouth, Daily at bedtime, # 180 capsule, Refills 1, Tot. Refills 1, Maintenance, 09/05/24 1:06:00 PM EST, Route to Pharmacy Electronically, [facility] #[id number], Partial fill uponpatient request if the [...] Refills, Maintenance, 09/05/24 1:06:00 PM EST, Tablet, [id number], Partial fill upon patient request if [...] Foraminal stenosis of lumbar region Confirmed Active Diagnosis Diagnosis Type Effective Dates Health Status Clinical Service Informant Depression, major Discharge Diagnosis 11/21/24 Anxiety Discharge Diagnosis 11/21/24 Essential tremor Discharge Diagnosis 11/21/24 Degenerative joint disease (DJD) of lumbar spine Discharge Diagnosis 11/21/24 Mild cognitive impairment Discharge Diagnosis 11/21/24 Vital Signs Most recent to oldest [Reference Range]: 1 Height 148 cm (11/21/24 12:13 PM) Weight 48.3 kg (11/21/24 12:13 PM) Oxygen Saturation [94-100 %] 100 % (11/21/24 12:13 PM) Pulse Rate [55-90 bpm] 75 bpm (11/21/24 12:13 PM) Body Mass Index [18.5-24.99 kg/m2] 22.05 kg/m2 (11/21/24 12:13 PM) Blood Pressure [90-138/55-84 mm Hg] 126/ 72mm Hg (11/21/24 12:13 PM) Mode of Delivery (Oxygen) Room air (11/21/24 12:13 PM) Blood pressure sites Arm, left (11/21/24 12:13 PM) Social History Social History Type Response Smoking Status Former smoker; Other : start 1965 x9yr; entered on: 05/20/17 Sex Sex Representation Female (finding) Note * Maryam Varner: PERFORM Event Display: Patient Education/Instruction Authored Date: [id number] Ambulatory [place] [address] Name: YOLANDA RPADHAN : 1950?? Visit: 11/21/2024 12:06?? Ambulatory Visit Instructions ?? Your Care Team Primary Care Provider Marge Frank MD? This Visit Provider Mareg Frank MD Your Diagnosis Depression, major Anxiety Essential tremor Degenerative joint disease (DJD) of lumbar spine Mild cognitive impairment Vitals Signs Pulse Rate: 75 bpm Height: 148 cm Systolic Blood Pressure: 126 mm Hg Weight: 48.3 kg Diastolic Blood Pressure: 72 mm Hg Body Mass Index: 22.05 kg/m2 Oxygen Saturation: 100 % Body surface area: 1.41 What to do next Scheduled Follow-Up Appointments 2024 1:30 PM EST ?? With: Payton Sawant Where: [facility] Status: Pending Tuesday 1:00 PM EST ?? With: Pasquale Benavides Where: [facility] Status: Pending 2024 1:30 PM EST ?? With: Pasquale Benavides Where: [facility] Status: Pending Tuesday 11:00 AM EST ?? With: Adelaida Bond Where: [facility] Status: Pending Follow-Up Appointments Follow Up with??Monika ISSA, Marge When:??05/13/2025 01:20 PM EDT Why: MW Where: [address] [place] [address]- Medications The list below reflects the information in our records and provided by you today along with any changes made during this visit. Please continue your medications until treatment is completed or stopped by your provider. If this is different from the information you have or there are other questions,please contact the prescribing provider. What How Much When Why Instructions Unchanged Ascorbic Acid (Vitamin C) Unchanged BuPROpion (buPROPion 300 mg/ 24 hours (XL) oral tablet, extended release) 1 tab(s) Oral Daily Unchanged BusPIRone (busPIRone 15 mg oral tablet) 2 tab(s) Oral Twice a day Unchanged Calcium And Vitamin D Combination (D3 with Calcium) Oral Daily Unchanged Ergocalciferol (ergocalciferol 50211 iu oral capsule) 1 capsule Oral Every week Unchanged Estradiol Topical (Vagifem 10 mcg vaginal tablet) See instructions Vaginal atrophy 1 tablet Vaginally at bedtime TWICE WEEKLY ?? Unchanged Gabapentin (gabapentin 100 mg oral capsule) 2 capsule Oral Daily at Bedtime Unchanged Gabapentin (gabapentin 600 mg oral tablet) 1 tab(s) Oral Daily Unchanged Loratadine Oral Daily Unchanged Lutein (Lutein 6 mg oral capsule) 1 capsule Oral Daily Unchanged Multivitamin (Vit B Complex Tablet) ?? What How Much When Comments Stop Taking Carbidopa-Levodopa (carbidopa-levodopa 25 mg-100 mg oral tablet) 180 each, 0 Refill(s), TAKE 1/ 2-1 TAB TWICE A DAY FOR 30 DAYS TAKE W/ ??A CRACKER 30 MINUTES BEFORE BREAKFAST AND DINNER, ?? Stop Taking Lidocaine Topical (Lidocaine 5% Topical) Topically Medications and Immunizations Administered Medications Given During Visit No medications given during this visit.?? Allergies (NKA means No Known Allergies) NKA Common Emergency Awareness Tips IS IT A STROKE? Act FAST and Check for these signs: FACE Does the face look uneven? ARM Does one arm drift down? SPEECH Does their speech sound strange? TIME Call at any sign of stroke ?? Heart Attack Signs Chest discomfort: Most heart attacks involve discomfort in the center of the chest and lasts more than a few minutes, or goes away and comes back. It can feel like uncomfortable pressure, squeezing, fullness or pain. Discomfort in upper body: Symptoms can include pain or discomfort in one or both arms, back, neck, jaw or stomach. Shortness of breath: With or without discomfort. Other signs: Breaking out in a cold sweat, nausea, or lightheaded. Remember, MINUTES DO MATTER. If you experience any of these heart attack warning signs, call to get immediate medical attention! ?? Smoking can increase your chances of developing chronic health problems and can cause harmful effects to other family members in your house. If you smoke, you are strongly encouraged to quit. Please call [facility] at [phone] or [phone] ([phone]) or log in to [email or web address] for referrals to smoking cessation programs. ?? The National Suicide Prevention Hotline is available 09/05 if you or someone you know needs to find a reason to keep living. By calling 0-565-499-[place]ampo (0371) you'll be connected to a skilled, trained counselor at a crisis center in your area. [facility] Portal You can view and manage your care through the patient portal or by using a health care frederick of your choosing. [employer] is a website that allows you to securely view your medical information including your hospital discharge summary, office visit summaries, medications and follow-up visits. You can also request appointments, renew medications, and request access to your medical information using a health care frederick of your choosing, or just ask a question. You can enroll at [email or web address] or register during your next office visit. [facility], in keeping with [facility] guidance, no longer requires face masks for staff, patientsor visitors in most situations. Similiar to time spent indoors at other locations, there is the chance that you were exposed to repiratory viruses during your time with us (such as flu or COVID-19). If you develop symptoms concerning for a viral respiratory infection, please seek testing (and treatment if indicated) from your medical provider or home test kit. ?? Disclaimer: The information provided is of a general nature and is intended to be used in conjunction with the recommendations and advice of your health care practitioner. Every effort has been made to ensure that the information provided is accurate and complete at the time it is provided to you however, as your needs change, or, as new information becomes available, different or additional instructions may be required. ?? If you have questions, please consult with your primary care provider or pharmacist, as appropriate. This information is not intended to serve as substitution for assessment and evaluation by a qualified health care provider. If you do not have a primary care provider, you may find a [facility] provider by calling [facility] at [phone]. Patient Care team information Care Team Personnel Name: Marge Frank MD Position: S Physician - Primary Care Member Role: PCP Address: [address] [place] [address] Telecom: Care Team Related Persons Name: NESTOR BLEVINS Insurance Providers Guarantor name: YOLANDA PRADHAN Health Plan Information #: 1 Payer: MEDICARE PART B OUTPT Member Number: [id number] Policy Number: NA Group Number: NA Health Plan Information #: 2 Payer: MEDEX Member Number: [id number] Policy Number: NA Group Number: [id number]
== END 2024-12-20 10:06 | disposition home or self-care (01) ==
PROVIDERS: PCP Internal Medicine; Visit Provider Nurse Practitioner Family
DX: G25.0 Essential tremor (principal); G31.84 Mild cognitive impairment of uncertain or unknown etiology; G47.33 Obstructive sleep apnea (adult) (pediatric)
CPT/HCPCS: 99214

== ENCOUNTER 2025-06-25 11:09 | Outpatient (AMB) | payer BC, MEDICARE, SELFPAY ==
[2025-06-25 11:20] VITALS: BP 110/60; PULSE 68; O2SAT 98; BMI 23.6
--- NOTE | 2025-06-25 11:20 | A.OFFVIS_ITS ---
Vital Signs 3 06/25/25 11:20 Height 4 ft 10 in Weight 113 lb BMI 23.6 BP 110/60 Blood Pressure Location Rt brachial Position Sitting Pulse 68 Pulse Source Pulse Oximeter Pulse Oximetry (%) 98 Oxygen Delivery Method Room Air Intake Visit Reasons: 6 mnts f/u Signal Manager Required: No Accompanied by: Self / Same As Patient Allergies No Known Allergies Allergy (Verified 06/25/25 11:23) Medication List - Last Reconciled 06/25/25 by FUENTES Boucher acetaminophen-codeine 300-30 mg tabs PO ascorbate calcium (vitamin C) 500 mg PO DAILY bupropion HCl XL 300 mg PO DAILY buspirone 30 mg PO BID carbidopa-levodopa 25-100 mg 1.5 tabs PO TID 30 days estradiol 10 mcg vaginal 2XW gabapentin 600 mg PO DAILY lidocaine 5% 1 patch topical DAILY vitamin B complex 1 tab PO DAILY HPI Comments Details: 74-year-old female presents for follow-up of tremor and mild cognitive impairment. After the last visit, the patient underwent a follow-up brain MRI without contrast, the results of which were stable, showing likely chronic small-vessel ischemia. She also underwent follow-up HST in January, which was ordered by her PCP; the results of which are pending per the patient. She would like us to look at these results ourselves. She also underwent follow-up neuro-psych eval in January 2025, results again showed mild cognitive impairment with/ depression. Recommendations included making sure she is taking the buproprion in the am and or trying Duloxetine instead. She states she has been taking this for approximately 20+ years. Before starting bupropion, she tried zoloft, paxil, and prozac. She continues to feel that she has bothersome cognitive difficulties, including STM lapses and word-finding difficulties, which worries her as her father had signs of AD in his 90s. She has taken a course of vitamin D supplementation, and is awaiting clarification on which vitamin D supplement and at what dose to continue. She is curious if there are other supplements she should be taking. She reports she was supposed to see a psychiatrist, but something happened, and she was not able to establish care with a new psychiatric provider. She states her PCP currently manages her bupropion. She also started Dylon-Trio for her RUE action tremor, which she is starting to see benefit from. She is currently only using her Dylon Trio device once a day, as she is trying to figure out how to incorporate using it into her daily activity (it takes almost an hour for the stimulation to take effect). Sometimes the intensity is too much if she tries writing when she wears it, so she needs to decrease the intensity on her own. 03/06/2025 at [facility] Brain MRI without contrast: 1. No acute/subacute infarct, mass, hemorrhage, or other acute intracranial abnormality. 2. T2/FLAIR hyperintense foci in the white matter, nonspecific but most likely reflecting chronic small vessel disease. 3. No significant change from prior study 06/12/2024 HPI: Pt is accompanied by her , Sybil. Pt denies any significant interval medical history changes. Pt continues to work w/ [facility] pain management- she is being considered for device trial. Her step dtr committed suicide this Spring, and she is recovering from this. She has been taking CD-LD 1 tab qam. Forgetting to take the 2nd CD-LD dose regularly. She is not noticing much decrease in her tremors- if anything the tremors are increased. Tremor is mostly w/ action- writing, eating, using a computer- mostly with the typing but less so with the mouse, texting on her phone. Occasionally will see a RUE rest tremor. At times intentionally focusing and telling her hand not to tremor helps briefly. The tremors are most bothersome when anxious or upset. She is curious about Medicare coverage of Dylon-Trio. She is noticing more cognitive issues. Relying on her her calender in her phone more often. May wake up and need to confirm what day it is. feels her memory is worse in the am, but feels once she is settled, her cognition is ok. She is noticing that she is more prone to misplacing her keys or forgetting to bring everything with her- say her cane. Having some more nights were she is not falling asleep as easily. Some nights she sleeps 12 hrs, which she feels she needs as she did sleep. She denies daytime tiredness. Notes her mood is better since we last saw her in December, as at that point she was dealing w/ some financial issues. 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 [facility] Medical History (Updated 06/25/25 @ 12:40 by FUENTES Boucher) Anxiety Vertigo Osteoporosis Back pain GERD (gastroesophageal reflux disease) Depression Arthritis Surgical History Hx of cataract surgery Social History Alcohol intake: never Patient Tobacco Use Status: Never used Tobacco Physical Exam Vital Signs: Last Vital Signs Pulse 68 06/25/25 11:20 BP 110/60 06/25/25 11:20 Pulse Ox 98 06/25/25 11:20 Oxygen Delivery Method Room Air 06/25/25 11:20 BMI result Body Mass Index 23.6 Const General: cooperative and no acute distress Resp Effort & Inspection: normal respiratory effort and able to speak in complete sentences Neuro Other: General: A&O x's 3 w/ mild STM lapses Expression: Intact Voice: Intact Tremor: RUE and RLE rest tremor, BUE postural and kinetic tremor, more so on right. Dyskinesia: None Gait: Slow to stand, steady gait Psych: Pleasant affect Results Reviewed Results Reviewed: Assessment & Plan Assessment & Plan (1) Essential tremor: Comment: ARACELY scan normal. 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 Code(s): G25.0 - Essential tremor Category: Medical (2) MCI (mild cognitive impairment): Code(s): G31.84 - Mild cognitive impairment of uncertain or unknown etiology Category: Medical (3) Depression: Code(s): F32.A - Depression, unspecified Category: Medical Qualifiers: Depression Type: unspecified Qualified Code(s): F32.A - Depression, unspecified (4) Anxiety: Code(s): F41.9 - Anxiety disorder, unspecified Category: Medical (5) Mild obstructive sleep apnea: Comment: has never tried CPAP. Code(s): G47.33 - Obstructive sleep apnea (adult) (pediatric) Category: Medical Plan Essential tremor * Continue right handed Dylon-Trio, TAPS therapy: * Patient continues to have no contraindications to Dylon trio, an external upper limb tremor stimulator therapy. * Patient is benefitting from TAPS therapy, as evidenced by greater than 3 point improvement in the patient's BF-ADL score, specifically in eating, drinking, and carrying groceries. * Patient is has used the Dylon-Trio device device daily greater than 70% of the days in the last 2 months. * Patient is not taking any tremor exacerbating medications. * Patient has not tolerated and has not had significant positive effect from propranolol and primidone. Gabapentin up to 700 mg per day has not had beneficial effect on tremor. * Dylon trio, an external upper limb tremor stimulator therapy is being prescribed as an alternative to invasive and/or permanent surgical treatment options. * Continue Carbidopa-levodopa 25-100mg- slowly increase dose up to 1.5 tabs 3 x's per day a * Continue Gabapentin 600-700mg qhs. * Information shared on essential tremor resources, such as computer aids, writing aids. * Previous ET trials- Propranolol 40mg bid- not tolerated. Primidone 25mg- not tolerated. Cognitive symptoms * Reviewed follow-up neuropsych consult- stable MCI w/ depression * Reviewed interval 03/06/2025 brain MRI without contrast: Stable nonspecific T2/FLAIR hyperintensities in the white matter, most likely reflecting chronic small-vessel ischemia. * Will request outpatient psychiatric consult through the [facility], as her PCP is at [facility]. * Check [facility] AD-Detect? Apolipoprotein E (ApoE) Isoform, Plasma, Test Code 76469- to assess for genetic AD risk. * Patient advised her maybe [id number] expense for this * Encouraged to engage in daily physical activity for cognitive benefits. * Will defer ongoing vitamin-D supplementation to PCP * April 2025 vitamin-D level: 65 WNL * Use hearing aids regularly, attend follow-up audiological evaluations, and report any issues. For sleep * Will request recent HST report * Pt to continue working on sleep hygiene. * May take CBD gummies prn insomnia- sparingly. Will follow-up upon review of above and patient to follow-up in clinic in 6 months or sooner prn. Orders: Orders 2 Other [place] [facility] [place] G31.84 - Mild cognitive impairment of uncertain or unknown etiology, Z82.0 - Family history of epilepsy and other diseases of the nervous system Referrals 2 Psychiatry Referral F32.A - Depression, unspecified, F41.9 - Anxiety disorder, unspecified Coding Level of Care Code Est Pt Level 4 (29825) Complex EM visit Add On G2211 Diagnoses Essential tremor G25.0 MCI (mild cognitive impairment) G31.84 Depression, unspecified depression type F32.A Depression Type: unspecified Anxiety F41.9 Mild obstructive sleep apnea G47.33
--- OUTSIDE RECORDS SUMMARY | 2025-06-25 13:31 | XMS_ITS | Patient Health Record ---
Author Organization [facility] Address [address] [place] [address] Care Team Providers Care Nurse Practitioner Manager Name Role Phone ADRIENNE FORD Primary Care Provider Yuliana Orion Lopez Jr Unavailable [phone] Reason For Referral No Information Medications Medication SIG (Take, Route, Frequency, Duration) Notes Start Date End Date Status Calcium Citrate Maximum/Vit D 1 po QD Active Loratadine 10 MG 1 tablet Orally Once a day Active Aspir-81 81 MG 1 tablet Orally Once a day Active Colyte with Flavor Packs 240 GM As directed Orally Over the specified time. for 1 day(s) Active Lutein 6 MG 1 capsule with a rosemary l Orally twice a day Active Vitamin C 500 MG 1 tablet Orally twic e a day Active busPIRone HCl 15 MG 1 tablet Orally thre e x a day Active Gabapentin 100 MG 1 capsule Orally Twi ce a day Active buPROPion HCl ER (XL) 150 MG 1 tablet in the morning Orally twice a day Active Social History Tobacco Use: Social History Observation Description Date Details (start date - stop date) Former Smoker NA - NA Tobacco Use/Smoking Question Answer Notes Patient is a former smoker How long has it been since you last smoked? > 10 years Alcohol Screen Question Answer Notes Did you have a drink containing alcohol in the p ast year? No Points 0 Interpretation Negative Problems Problem Type SNOMED Code ICD Code Onset Dates Problem Status W/U Status Risk Notes Problem 575048245 Colon cancer screening (Z12.11) Active confirmed Problem [id number] Encounter for other preprocedural examination (Z01.818) Active confirmed Plan Of Treatment Future Test Test Name Order Date COLONOSCOPY 09/02/2017 Insurance Providers Payer Name Payer Address Payer Phone Subscriber Number Group Number Insured Name Patient Relationship to Insured Coverage Start Date Coverage End Date [facility] [employer] [facility] [address] [place] [address] [id number] YOLANDA PRADHAN Self - patient is the insured Medical (General) History Medical History History ICD Code anxiety/depression mild asthma leg cramps essential tremor gastroesophageal reflux disease Surgical History Surgery Date(Month/Year) section 1996 breast biopsy 1974,1979
== END 2025-06-25 12:18 | disposition home or self-care (01) ==
LOC: HO.HSMS 11:09
PROVIDERS: PCP Internal Medicine; Visit Provider Nurse Practitioner Family
DX: G25.0 Essential tremor (principal); G31.84 Mild cognitive impairment of uncertain or unknown etiology; F32.A Depression, unspecified; F41.9 Anxiety disorder, unspecified; G47.33 Obstructive sleep apnea (adult) (pediatric)
CPT/HCPCS: 99214